=== PATIENT | female | born 1945 | race Caucasian/White ===

== ENCOUNTER → 2018-04-02 09:59 | Outpatient (CLI) | payer MEDICARE, BC, SELFPAY ==
[2018-04-02 13:37] LABS: Absolute Basophil Count 0.01 k/cumm (0.0-0.2); Absolute Eosinophil Count 0.07 k/cumm (0.0-0.7); Absolute Lymphocyte Count 2.88 k/cumm (1.2-3.4); Absolute Monocyte Count 0.37 k/cumm (0.11-0.7); Absolute Neutrophil Count 2.29 k/cumm (1.2-6.7); Basophils % 0.2; Eosinophils % 1.2; HCT 38.2 % (36.0-46.0); HGB 12.9 g/dL (12.0-15.5); Lymphocytes % 51.2; Mean Corp. HGB Concentration 33.8 g/dL (32.0-36.0); Mean Corpuscular Hemoglobin 31.5 pg (27.0-33.0); Mean Corpuscular Volume 93.2 fL (80-95); Monocytes % 6.6; Neutrophils % 40.8; Platelet Count 145 x1000/uL (130-400); RBC Distribution Width 14.9 % (11.7-14.6); White Blood Cell Count 5.62 k/cumm (4.4-10.8)
[2018-04-02 14:10] LABS: ALT 23 U/L (12-78); AST 14 U/L (15-37); Albumin 3.8 g/dL (3.4-5.0); Alkaline Phosphatase 58 U/L (46-116); Anion Gap 9.5 mmol/L (3-11); BUN 19 mg/dL (7-18); Bilirubin, Total 0.6 mg/dL (0.2-1.0); CO2 27.5 mmol/L (21.0-32.0); CREATININE 0.82 mg/dL (0.55-1.02); Calcium 8.9 mg/dL (8.5-10.1); Chloride 107 mmol/L (98-107); Glucose 93 mg/dL (70-100); Potassium 4.2 mmol/L (3.5-5.1); Sodium 144 mmol/L (136-145); TSH (W/Ref FT4) 0.75 uIU/mL (0.358-3.74); Total Protein 6.8 g/dL (6.4-8.2)
== END ==
PROVIDERS: Visit Provider Family Medicine
DX: I10 Essential (primary) hypertension (principal); K52.9 Noninfective gastroenteritis and colitis, unspecified; R19.7 Diarrhea, unspecified
CPT/HCPCS: 36415; 80053; 84443; 85025

== ENCOUNTER → 2018-04-03 15:54 | Outpatient (REF) | payer MEDICARE, BC, SELFPAY ==
[2018-04-04 13:45] LABS: Campylobacter PCR SEE COMMENTS; Salmonella PCR SEE COMMENTS; Shiga Toxin PCR SEE COMMENTS; Shigella/Enteroinvasive Ecoli SEE COMMENTS
== END ==
LOC: LBN 15:54
PROVIDERS: Visit Provider Family Medicine
DX: R19.7 Diarrhea, unspecified (principal); K52.9 Noninfective gastroenteritis and colitis, unspecified; Z12.11 Encounter for screening for malignant neoplasm of colon
CPT/HCPCS: 87329; 87505; 82270; 87177

== ENCOUNTER 2018-05-23 14:35 | Outpatient (CLI) | payer MEDICARE, BC, SELFPAY ==
[2018-05-27 10:22] LABS: Rheumatoid Factor 9 IU/mL (<12.5)
== END 2018-05-23 14:55 ==
DX: M25.50 Pain in unspecified joint (principal)
CPT/HCPCS: 36415; 80053; 86431

== ENCOUNTER 2019-03-11 12:54 | Outpatient (REF) | payer MEDICARE, BC, SELFPAY ==
--- NOTE | 2019-03-11 11:20 | PAPFT_PTH ---
PATIENT: Pushpa Miller LOC: [facility] U#:[id number] AGE/SX: 74/F ROOM: RE03/11/[address]: Desire Farmer : 1945 BED: DIS: 03/11/2019 SPEC #: [id number] RECD: 03/11/19 12:57 STATUS: JACINTA MCNEAL #: [id number] CHRISSIE: 03/11/19 11:[address]: Desire Farmer DEPT: [facility] Cytology RECD BY: Ava Foy ENTERED: 03/11/19 12:58 SP TYPE: PAPFT OTHR DR: Priscilla Jackman APRN Tissues: 1 - CX/ENDOCX FOR PAP SMEARS Procedures: PAP THIN PREP/UVM Screening HPV DNA PROBE Comments: [id number]
== END 2019-03-11 13:14 ==
LOC: LBN 12:54
PROVIDERS: Visit Provider Obstetrics & Gynecology Gynecology
DX: Z12.4 Encounter for screening for malignant neoplasm of cervix (principal); Z11.51 Encounter for screening for human papillomavirus (HPV)
CPT/HCPCS: 88142; 87624

== ENCOUNTER 2019-03-28 15:25 | Outpatient (CLI) | payer MEDICARE, BC, SELFPAY ==
--- NOTE | 2019-03-28 15:45 | DI.MAMMO_ITS ---
SYMPTOMS/DIAGNOSIS: SCREENING, Z12.31 MAMMOGRAM: Mammograms were interpreted according to the usual protocol including computer analysis with CAD system, tomosynthesis and C view imaging. The breasts are of moderate density with fairly symmetrical distribution of fibroglandular tissue. No dominant mass or clumped microcalcification is identified in either breast. Current examination is compared with the previous examinations including February 2018 and there has been no gross interval change in appearance in comparison with the previous studies. CONCLUSION: No specific evidence of malignancy at this time. Routine screening examinations are suggested at yearly intervals in this age group according to the ACS/ACR guidelines. Category 1, breast density category B. MQSA ASSESSMENT OF FINDINGS: Negative. Category 1. Patient will receive a letter notifying them of these results. BI-RADS category B. There are scattered areas of fibroglandular density.
== END 2019-03-28 15:45 ==
PROVIDERS: Visit Provider Obstetrics & Gynecology Gynecology
DX: Z12.31 Encounter for screening mammogram for malignant neoplasm of breast (principal)
CPT/HCPCS: 77063; 77067

== ENCOUNTER 2019-06-13 16:05 | Outpatient (REF) | payer MEDICARE, BC, SELFPAY ==
--- NOTE | 2019-06-13 15:00 | ENDO_PTH ---
PATIENT: Pushpa Miller LOC: [facility] U#:[id number] AGE/SX: 74/F ROOM: RE06/13/[address]: Desire Farmer : 1945 BED: DIS: 06/13/2019 SPEC #: [id number] RECD: 06/13/19 18:30 STATUS: JACINTA REQ #: [id number] CHRISSIE: 06/13/19 15:[address]: Desire Farmer DEPT: Surgical Specimen RECD BY: Ava Foy ENTERED: 06/13/19 18:30 SP TYPE: Endo OTHR DR: Priscilla Jackman APRN Tissues: 1 - ENDOCERVICAL BX/CURRETTE Procedures: GROSS AND MICRO LEVEL 4 Comments: [id number]
== END 2019-06-13 16:25 ==
LOC: LBN 16:05
PROVIDERS: Visit Provider Obstetrics & Gynecology Gynecology
DX: N87.9 Dysplasia of cervix uteri, unspecified (principal); Z87.42 Personal history of other diseases of the female genital tract
CPT/HCPCS: 88305

== ENCOUNTER 2019-06-21 01:28 | Outpatient (CLI) | payer MEDICARE, BC, SELFPAY ==
[2019-06-21 12:29] LABS: Anion Gap 8.3 mmol/L (3-11); BUN 27 mg/dL (7-18); CO2 28.7 mmol/L (21.0-32.0); CREATININE 0.82 mg/dL (0.55-1.02); Calcium 9.2 mg/dL (8.5-10.1); Chloride 104 mmol/L (98-107); FREE T4 1.17 ng/dL (0.76-1.46); Glucose 99 mg/dL (70-100); Potassium 4.2 mmol/L (3.5-5.1); Sodium 141 mmol/L (136-145); TSH (W/Ref FT4) 0.95 uIU/mL (0.36-3.74)
== END 2019-06-21 01:48 ==
DX: I10 Essential (primary) hypertension; L65.9 Nonscarring hair loss, unspecified; R79.89 Other specified abnormal findings of blood chemistry
CPT/HCPCS: 36415; 80048; 84439; 84443

== ENCOUNTER 2019-09-25 02:35 | Outpatient (CLI) | payer MEDICARE, BC, SELFPAY ==
[2019-09-25 14:00] LABS: Kit/Specimen SENT
== END 2019-09-25 02:55 ==
PROVIDERS: Visit Provider Physician Assistant Medical
DX: Z02.89 Encounter for other administrative examinations (principal); R69 Illness, unspecified
CPT/HCPCS: 36415

== ENCOUNTER 2020-12-02 01:36 | Outpatient (CLI) | payer MEDICARE, BC, SELFPAY ==
--- NOTE | 2020-12-02 11:25 | DI.MAMMO_ITS ---
EXAM: MG MAMMO SCREENING CLINICAL HISTORY: screening,Z12.39. TECHNIQUE: Bilateral full field digital CC and MLO mammographic images were obtained with 3D tomosyn thesis and utilizing computer aided detection (CAD). COMPARISON: Prior mammograms dating back to 2010, the most recent being March 2019. FINDINGS: There are no new spiculated masses nor malignant appearing microcalcification groups. There is no significant architectural distortion nor skin thickening-retraction. IMPRESSION: No radiographic evidence of malignancy. BI-RADS Category 1 - Negative Breast Density - Category B - Scattered areas of fibroglandular density Breast density Category C or D implies that the patient has dense breast tissue. Dense breast tissue can make it harder to find cancer on a mammogram. Dense breast tissue is also associated with an incr eased risk of breast cancer. This information about the result of the mammogram report was provided to the patient to raise their awareness. Use this report when you speak with the patient about their risks for breast cancer, which includes their family history. At that time, you may recommend additional screening tests (Ultrasoun d or MRI) as these tests may add significant information. A negative radiographic report should not delay biopsy if a dominant or clinically suspicious mass is present. Up to ten percent of cancers are not identified on mammography. A negative report may reinforce clinical impression. Adenosis and dense breasts may obscure an underlying neoplasm. False positive reports average 6 to 10%. Patient will receive a letter notifying them of these results.
== END 2020-12-02 01:56 ==
PROVIDERS: Visit Provider Obstetrics & Gynecology Gynecology
DX: Z12.31 Encounter for screening mammogram for malignant neoplasm of breast (principal)
CPT/HCPCS: 77063; 77067

== ENCOUNTER 2020-12-06 15:28 | Outpatient (REF) | payer MEDICARE, BC, SELFPAY ==
--- NOTE | 2020-12-06 15:10 | PAPFT_PTH ---
PATIENT: Pushpa Miller LOC: [facility] U#:[id number] AGE/SX: 75/F ROOM: RE12/06/[address]: Desire Farmer : 1945 BED: DIS: 12/06/2020 SPEC #: [id number] RECD: 12/06/20 17:57 STATUS: JACINTA REMarco #: [id number] CHRISSIE: 12/06/20 15:[address]: Desire Farmer DEPT: [facility] Cytology RECD BY: Ava Foy ENTERED: 12/06/20 17:58 SP TYPE: PAPFT OTHR DR: Priscilla Jackman APRN Tissues: 1 - CX/ENDOCX FOR PAP SMEARS Procedures: PAP THIN PREP/UVM Screening HPV DNA PROBE Comments: [id number] (HPV 16 & 18/45)
== END 2020-12-06 15:29 | disposition home or self-care (01) ==
LOC: LBN 15:28
PROVIDERS: Visit Provider Obstetrics & Gynecology Gynecology
DX: Z12.4 Encounter for screening for malignant neoplasm of cervix (principal); Z87.42 Personal history of other diseases of the female genital tract; Z11.51 Encounter for screening for human papillomavirus (HPV); R87.810 Cervical high risk human papillomavirus (HPV) DNA test positive
CPT/HCPCS: 88142; 87624

== ENCOUNTER 2020-12-30 02:15 | Outpatient (CLI) | payer MEDICARE, BC, SELFPAY ==
[2020-12-30 12:14] LABS: ALT 30 U/L (14-59); AST 18 U/L (15-37); Albumin 3.9 g/dL (3.4-5.0); Alkaline Phosphatase 69 U/L (46-116); Anion Gap 9.1 mmol/L (3-11); BUN 22 mg/dL (7-18); Bilirubin, Total 0.5 mg/dL (0.2-1.0); C-Reactive Protein < 0.05 mg/dL (0.0-0.3); CO2 27.9 mmol/L (21.0-32.0); CREATININE 0.8 mg/dL (0.55-1.02); Calcium 8.7 mg/dL (8.5-10.1); Chloride 105 mmol/L (98-107); Glucose 100 mg/dL (74-106); Potassium 4.2 mmol/L (3.5-5.1); Sodium 142 mmol/L (136-145); TSH (W/Ref FT4) 0.83 uIU/mL (0.36-3.74); Total Protein 6.9 g/dL (6.4-8.2)
[2020-12-30 12:28] LABS: Calculated LDL 99 mg/dL (<100); Cholesterol 181 mg/dL (<200); HDL Cholesterol 75 mg/dL (40-60); Triglyceride 39 mg/dL (<150)
[2020-12-30 16:29] LABS: Rheumatoid Factor <8.6 IU/mL (<12.0)
[2020-12-31 13:31] LABS: ANA Interpretation Negative (Negative)
== END 2020-12-30 02:16 | disposition home or self-care (01) ==
DX: M25.541 Pain in joints of right hand (principal); M25.542 Pain in joints of left hand; M25.572 Pain in left ankle and joints of left foot; M25.562 Pain in left knee; I10 Essential (primary) hypertension; G47.00 Insomnia, unspecified; Z00.00 Encounter for general adult medical examination without abnormal findings
CPT/HCPCS: 36415; 80053; 80061; 86816; 84443; 86038; 86140; 86431

== ENCOUNTER 2021-01-14 02:21 | Outpatient (CLI) | payer MEDICARE, BC, SELFPAY ==
[2021-01-18 11:18] LABS: IgA 348 mg/dL (85-499); Interpretation (See Note); Tissue Transglutaminase IgA <1.2 U/mL (<4.0)
[2021-01-18 16:27] LABS: Gliadin (Deamidated) Ab, IgG <10.0 U
[2021-01-18 20:14] LABS: C2 Complement, Functional 45 U/mL (25 - 47)
[2021-01-21 18:10] LABS: Transforming Growth Factor b 7481 pg/mL (3465-13889)
== END 2021-01-14 02:22 | disposition home or self-care (01) ==
PROVIDERS: Visit Provider Internal Medicine
DX: E61.7 Deficiency of multiple nutrient elements (principal); R53.83 Other fatigue; G47.33 Obstructive sleep apnea (adult) (pediatric); G60.9 Hereditary and idiopathic neuropathy, unspecified; K52.832 Lymphocytic colitis; B37.9 Candidiasis, unspecified; Z83.79 Family history of other diseases of the digestive system; Z77.120 Contact with and (suspected) exposure to mold (toxic); L66.1 Lichen planopilaris
CPT/HCPCS: 36415; 82784; 83516; 83520; 86161

== ENCOUNTER 2021-01-31 02:51 | Outpatient (CLI) | payer MEDICARE, BC, SELFPAY | END 2021-01-31 02:52 | disposition home or self-care (01) | PROVIDERS: Visit Provider Internal Medicine | DX: R53.83 Other fatigue (principal); E61.7 Deficiency of multiple nutrient elements; Z77.120 Contact with and (suspected) exposure to mold (toxic); K52.832 Lymphocytic colitis; G47.33 Obstructive sleep apnea (adult) (pediatric); I10 Essential (primary) hypertension; Z01.84 Encounter for antibody response examination | CPT/HCPCS: 80061; 84403; 86617 ==

== ENCOUNTER 2021-02-15 03:24 | Outpatient (CLI) | payer MEDICARE, BC, SELFPAY | END 2021-02-15 03:25 | disposition home or self-care (01) | LOC: LBO 03:24 | PROVIDERS: Visit Provider Internal Medicine | DX: E61.7 Deficiency of multiple nutrient elements (principal); B37.9 Candidiasis, unspecified; R53.83 Other fatigue; G47.33 Obstructive sleep apnea (adult) (pediatric); G60.9 Hereditary and idiopathic neuropathy, unspecified; K52.832 Lymphocytic colitis; Z83.79 Family history of other diseases of the digestive system; Z77.120 Contact with and (suspected) exposure to mold (toxic) | CPT/HCPCS: 83520 ==

== ENCOUNTER 2021-12-20 01:41 | Outpatient (CLI) | payer MEDICARE, BC, SELFPAY ==
[2021-12-20 12:34] LABS: ALT 27 U/L (14-59); AST 20 U/L (15-37); Albumin 3.9 g/dL (3.4-5.0); Alkaline Phosphatase 65 U/L (46-116); Anion Gap 9.5 mmol/L (3-11); BUN 15 mg/dL (7-18); Bilirubin, Total 0.6 mg/dL (0.2-1.0); CO2 27.5 mmol/L (21.0-32.0); CREATININE 0.9 mg/dL (0.55-1.02); Calcium 9.1 mg/dL (8.5-10.1); Chloride 99 mmol/L (98-107); Glucose 101 mg/dL (74-106); Potassium 3.8 mmol/L (3.5-5.1); Sodium 136 mmol/L (136-145); Total Protein 6.9 g/dL (6.4-8.2)
== END 2021-12-20 01:42 | disposition home or self-care (01) ==
LOC: LOS 01:42
DX: I10 Essential (primary) hypertension (principal)
CPT/HCPCS: 36415; 80053

== ENCOUNTER 2022-02-21 15:01 | Outpatient (REF) | payer MEDICARE, BC, SELFPAY ==
--- NOTE | 2022-02-21 15:45 | PAPFT_PTH ---
PATIENT: Pushpa Miller LOC: [facility]#:[id number] AGE/SX: 77/F ROOM: RE02/21/[address]: Desire Farmer : 1945 BED: DIS: 02/21/2022 SPEC #: [id number] RECD: 02/21/22 15:57 STATUS: JACINTA REMarco #: [id number] CHRISSIE: 02/21/22 15:[address]: Desire Farmer DEPT: [facility] Cytology RECD BY: Obdulia Hill ENTERED: 02/21/22 15:58 SP TYPE: PAPFT OTHR DR: Priscilla Jackman APRN Tissues: 1 - CX/ENDOCX FOR PAP SMEARS Procedures: PAP THIN PREP/UVM Screening HPV DNA PROBE Comments: [id number]
== END 2022-02-21 15:02 | disposition home or self-care (01) ==
LOC: LBN 15:01
PROVIDERS: Visit Provider Obstetrics & Gynecology Gynecology
DX: Z12.4 Encounter for screening for malignant neoplasm of cervix (principal); Z11.51 Encounter for screening for human papillomavirus (HPV); R87.810 Cervical high risk human papillomavirus (HPV) DNA test positive; Z01.411 Encounter for gynecological examination (general) (routine) with abnormal findings; Z92.89 Personal history of other medical treatment
CPT/HCPCS: 88142; 87624

== ENCOUNTER 2022-02-28 15:01 | Outpatient (REF) | payer MEDICARE, BC, SELFPAY ==
[2022-03-02 10:54] LABS: COVID-19 RT-PCR UVMMC Result Negative (Negative)
== END 2022-02-28 15:02 | disposition home or self-care (01) ==
LOC: LBN 15:01
PROVIDERS: Visit Provider Family Medicine
DX: Z20.822 Contact with and (suspected) exposure to COVID-19 (principal); J06.9 Acute upper respiratory infection, unspecified
CPT/HCPCS: U0003

== ENCOUNTER → 2022-04-06 01:10 | Outpatient (CLI) | payer MEDICARE, BC, SELFPAY ==
--- NOTE | 2022-04-06 15:45 | DI.MAMMO_ITS ---
Exam(s) MAMMO SCREENING EXAM: MAMMO SCREENING CLINICAL HISTORY: screening TECHNIQUE: Mammograms were interpreted according to the usual protocol including computer analysis w [employer] CAD system, tomosynthesis and C-view imaging. COMPARISON: 2012 through 2020 FINDINGS: The breasts are composed of scattered fibroglandular densities, Breast Density category B. No suspicious masses or suspicious microcalcifications are seen. No skin thickening or abnormal axillary lymph nodes are seen. There has been no significant change from prior exams. IMPRESSION: BI-RADS Category 1, Negative mammogram Yearly screening mammography is recommended. Breast Density - Category B, scattered fibroglandular densities. A negative radiographic report should not delay biopsy if a dominant or clinically suspicious mass is present. Up to ten percent of cancers are not identified on mammography. A negative report may reinforce clinical impression. Adenosis and dense breasts may obscure an underlying neoplasm. False positive reports average 6 to 10%. Patient will receive a letter notifying them of these results.
== END ==
PROVIDERS: Visit Provider Obstetrics & Gynecology Gynecology
DX: Z12.31 Encounter for screening mammogram for malignant neoplasm of breast (principal)
CPT/HCPCS: 77063; 77067

== ENCOUNTER 2022-12-28 02:37 | Outpatient (CLI) | payer MEDICARE, BC, SELFPAY ==
[2022-12-28 09:48] LABS: Hemoglobin A1C 5.5 % (<5.7)
[2022-12-28 10:00] LABS: Anion Gap 8.9 mmol/L (3-11); BUN 24 mg/dL (7-18); CO2 31.1 mmol/L (21.0-32.0); Calcium 9.1 mg/dL (8.5-10.1); Chloride 103 mmol/L (98-107); Estimated GFR 58.75 (mL/min/1.73m2); Glucose 110 mg/dL (74-106); Potassium 3.9 mmol/L (3.5-5.1); Sodium 143 mmol/L (136-145)
== END 2022-12-28 02:38 | disposition home or self-care (01) ==
LOC: LBO 02:37
PROVIDERS: PCP Nurse Practitioner Family; Visit Provider Nurse Practitioner Family
DX: I10 Essential (primary) hypertension (principal); R73.9 Hyperglycemia, unspecified
CPT/HCPCS: 36415; 80048; 83036

== ENCOUNTER 2023-02-05 13:38 | Outpatient (REF) | payer MEDICARE, BC, SELFPAY ==
--- NOTE | 2023-02-05 13:30 | PAPFT_PTH ---
PATIENT: Pushpa Miller LOC: [facility] U#:[id number] AGE/SX: 77/F ROOM: RE02/05/[address]: Desire Farmer : 1945 BED: DIS: 02/05/2023 SPEC #: [id number] RECD: 02/05/23 17:53 STATUS: JACINTA REMarco #: [id number] CHRISSIE: 02/05/23 13:[address]: Desire Farmer DEPT: [facility] Cytology RECD BY: Ava Foy ENTERED: 02/05/23 17:53 SP TYPE: PAPFT OTHR DR: John Smalls DNP Tissues: 1 - CX/ENDOCX FOR PAP SMEARS Procedures: PAP THIN PREP/UVM Screening HPV DNA PROBE Comments: [id number]
== END 2023-02-05 13:39 | disposition home or self-care (01) ==
LOC: LBN 13:38
PROVIDERS: PCP Nurse Practitioner Family; Visit Provider Obstetrics & Gynecology Gynecology
DX: R87.610 Atypical squamous cells of undetermined significance on cytologic smear of cervix (ASC-US) (principal)
CPT/HCPCS: 88142; 87624

== ENCOUNTER → 2023-04-09 00:53 | Outpatient (CLI) | payer MEDICARE, BC, SELFPAY ==
--- NOTE | 2023-04-09 07:45 | DI.MAMMO_ITS ---
Exam(s) MAMMO SCREENING EXAM: MAMMO SCREENING CLINICAL HISTORY: screening,z12.39 TECHNIQUE: Bilateral full field digital CC and MLO mammographic images were obtained with 3D tomosyn thesis and utilizing computer aided detection (CAD). COMPARISON: Available for comparison. FINDINGS: Masses/Architectural Distortion: None seen. Microcalcifications: No suspicious pleomorphic-type are seen. Skin Thickening/Nipple Retraction: None. IMPRESSION: 1. No significant interval change with no specific features of malignancy noted. 2. Unless there is more urgent need, screening mammography is recommended, as per [employer] guidelines. BI-RADS Category 1 - Negative Breast Density - Category B - Scattered areas of fibroglandular density Breast density category C or D implies that the patient has dense breast tissue. Dense breast tissue is very common and is not abnormal but dense breast tissue can make it harder to find cancer on a ma mmogram. Also, dense breast tissue may increase their breast cancer risk. This information about the result of the mammogram report was provided to the patient to raise their awareness. Use this report when you speak with the patient about their risks for breast cancer, which includes their family hist ory. At that time, you may recommend for more screening tests (Ultrasound or MRI) as they might be us eful based on their risk. A negative radiographic report should not delay biopsy if a dominant or clinically suspicious mass is present. Up to ten percent of cancers are not identified on mammography. A negative report may reinforce clinical impression. Adenosis and dense breasts may obscure an underlying neoplasm. False positive reports average 6 to 10%. Patient will receive a letter notifying them of these results.
== END ==
PROVIDERS: PCP Nurse Practitioner Family; Visit Provider Obstetrics & Gynecology Gynecology
DX: Z12.31 Encounter for screening mammogram for malignant neoplasm of breast (principal)
CPT/HCPCS: 77063; 77067

== ENCOUNTER 2024-01-08 05:09 | Outpatient (CLI) | payer MEDICARE, BC, SELFPAY ==
[2024-01-08 09:38] LABS: Anion Gap 6.6 mmol/L (3-11); BUN 23 mg/dL (7-18); CO2 28.4 mmol/L (21.0-32.0); Calcium 9.1 mg/dL (8.5-10.1); Chloride 103 mmol/L (98-107); Estimated GFR 58.39 (mL/min/1.73m2); Glucose 102 mg/dL (74-106); Potassium 4.2 mmol/L (3.5-5.1); Sodium 138 mmol/L (136-145)
== END 2024-01-08 05:10 | disposition home or self-care (01) ==
LOC: LBO 05:10
PROVIDERS: PCP Nurse Practitioner Family; Visit Provider Nurse Practitioner Family
DX: I10 Essential (primary) hypertension (principal)
CPT/HCPCS: 36415; 80048

== ENCOUNTER → 2024-01-28 05:35 | Outpatient (CLI) | payer MEDICARE, BC, SELFPAY ==
--- NOTE | 2024-01-28 | DI.DEXA_ITS ---
Exam(s) XR DEXA BONE DENSITY W/WO JIMMY EXAM: XR DEXA BONE DENSITY W/WO JIMMY CLINICAL HISTORY: screening for osteoporosis, POSTMENOPAUSAL STATUS, Z78.0 TECHNIQUE: COMPARISON: DX DEXA BONE DENSITY WITH JIMMY from 09/03/2012 FINDINGS: Lateral Spine Image: Unremarkable. No compression deformities identified. Left hip: Total T-Score: -0.3. This compares to 0.1 on the prior examination. Total Z-Score: 1.6 T- and Z-scores: Within normal limits. Lumbar Spine: Total T-Score: 2.1. This compares to 1.1 on the prior examination. Total Z-Score: 4.6 T- and Z-scores: Within normal limits. IMPRESSION: No evidence of osteoporosis.
== END ==
PROVIDERS: PCP Nurse Practitioner Family; Visit Provider Nurse Practitioner Family
DX: Z13.820 Encounter for screening for osteoporosis (principal); Z78.0 Asymptomatic menopausal state
CPT/HCPCS: 77080

== ENCOUNTER 2024-02-11 11:35 | Outpatient (REF) | payer MEDICARE, BC, SELFPAY ==
--- NOTE | 2024-02-11 11:30 | PAPFT_PTH ---
PATIENT: Pushpa Miller LOC: [facility] U#:[id number] AGE/SX: 78/F ROOM: RE02/11/[address]: Desire Farmer : 1945 BED: DIS: 02/11/2024 SPEC #: [id number] RECD: 02/11/24 13:00 STATUS: JACINTA REMarco #: [id number] CHRISSIE: 02/11/24 11:[address]: Desire Farmer DEPT: [facility] Cytology RECD BY: Ava Foy ENTERED: 02/11/24 13:00 SP TYPE: PAPFT OTHR DR: John Smalls DNP Tissues: 1 - CX/ENDOCX FOR PAP SMEARS Procedures: PAP THIN PREP/UVM Screening HPV DNA PROBE Comments: [id number] (HPV 16 & 18/45)
== END 2024-02-11 11:36 | disposition home or self-care (01) ==
LOC: LBN 11:35
PROVIDERS: PCP Nurse Practitioner Family; Visit Provider Obstetrics & Gynecology Gynecology
DX: Z12.4 Encounter for screening for malignant neoplasm of cervix (principal)
CPT/HCPCS: 88142; 87624

== ENCOUNTER → 2024-02-22 19:50 | Outpatient (CLI) | payer MEDICARE, BC, SELFPAY ==
--- NOTE | 2024-02-22 17:52 | DI.RAD_ITS ---
Exam(s) XR TIB/FIB LT EXAM: XR TIB/FIB LT CLINICAL HISTORY: evaluate pathology, pain in left lower leg M79.662. TECHNIQUE: 2D digital imaging was performed of the left tibia and fibula. Two images were obtained. AP and lateral views were obtained. COMPARISON: No exams were available for comparison FINDINGS: BONES: No acute fracture is present. No bony destructive lesion is seen. Marked degenerative changes are seen in the knee involving all 3 joint compartments. There is an enthesophyte at the posterior c alcaneus. SOFT TISSUE: There is mild soft tissue swelling of the ankle. IMPRESSION: No acute fracture or dislocation. DATA REPOSITORY: RADIATION DOSE DELIVERED:
--- NOTE | 2024-02-22 18:05 | DI.VRAD_ITS ---
PROCEDURE INFORMATION: Exam: XR Left Tibia and Fibula Exam date and time: 02/22/2024 5:50 PM Age: 79 years old Clinical indication: Pain; Lower leg; Left TECHNIQUE: Imaging protocol: Radiologic exam of the left tibia and fibula. Views: 2 views. COMPARISON: No relevant prior studies available. FINDINGS: Bones/joints: Degenerative changes of the medial and lateral femorotibial joint and the patellofemoral joint. No evidence for acute bony injury. No evidence for acute bony injury. Soft tissues: Soft tissue swelling of the ankle. IMPRESSION: No evidence for acute bony injury. If clinical symptoms persist recommend followup film in 7-10 days. Dictated and Authenticated by: Jennifer Torres MD. Ordering:ALLYSON Martinez MD
== END ==
PROVIDERS: PCP Nurse Practitioner Family; Visit Provider Nurse Practitioner Family
DX: M79.662 Pain in left lower leg (principal)
CPT/HCPCS: 73590

== ENCOUNTER 2024-04-18 00:03 | Outpatient (CLI) | payer MEDICARE, BC, SELFPAY ==
--- NOTE | 2024-04-18 11:52 | DI.MAMMO_ITS ---
Exam(s) MAMMO SCREENING EXAM: MAMMO SCREENING CLINICAL HISTORY: screening. TECHNIQUE: Bilateral full field digital CC and MLO mammographic images were obtained with 3D tomosyn thesis and utilizing computer aided detection (CAD). COMPARISON: Prior mammograms were reviewed. FINDINGS: There has been no significant change in the appearance and distribution of the fibroglandular tissue. Small density located superficially in the medial aspect of right breast is unchanged from mammograms and is probably a skin mole. There are no new spiculated masses nor malignant appearing microcalcification groups in either breast . There is no significant architectural distortion nor skin thickening-retraction. IMPRESSION: No radiographic evidence of malignancy. BI-RADS Category 2 - Benign Findings Breast Density - Category B - Scattered areas of fibroglandular density Breast density Category C or D implies that the patient has dense breast tissue. Dense breast tissue can make it harder to find cancer on a mammogram. Dense breast tissue is also associated with an incr eased risk of breast cancer. This information about the result of the mammogram report was provided to the patient to raise their awareness. Use this report when you speak with the patient about their risks for breast cancer, which includes their family history. At that time, you may recommend additional screening tests (Ultrasoun d or MRI) as these tests may add significant information. A negative radiographic report should not delay biopsy if a dominant or clinically suspicious mass is present. Up to ten percent of cancers are not identified on mammography. A negative report may reinforce clinical impression. Adenosis and dense breasts may obscure an underlying neoplasm. False positive reports average 6 to 10%. Patient will receive a letter notifying them of these results.
== END 2024-04-18 00:23 ==
LOC: DI 00:03
PROVIDERS: PCP Nurse Practitioner Family; Visit Provider Obstetrics & Gynecology Gynecology
DX: Z12.31 Encounter for screening mammogram for malignant neoplasm of breast (principal)
CPT/HCPCS: 77063; 77067

== ENCOUNTER 2024-05-28 16:10 | Outpatient (REF) | payer MEDICARE, BC, SELFPAY ==
--- NOTE | 2024-05-28 15:00 | CER_PTH ---
PATIENT: Pushpa Miller LOC: [facility] U#:[id number] AGE/SX: 79/F ROOM: RE05/28/[address]: Desire Farmer : 1945 BED: DIS: 05/28/2024 SPEC #: [id number] RECD: 05/28/24 17:38 STATUS: JACINTA REQ #: [id number] CHRISSIE: 05/28/24 15:[address]: Desire Farmer DEPT: Surgical Specimen RECD BY: Ava Foy ENTERED: 05/28/24 17:39 SP TYPE: CER LIBERTAD DR: John Smalls DNP Tissues: 1 - CERVICAL BIOPSY Procedures: GROSS AND MICRO LEVEL 4 Comments: [id number]
== END 2024-05-28 16:11 | disposition home or self-care (01) ==
LOC: LBN 16:10
PROVIDERS: PCP Nurse Practitioner Family; Visit Provider Obstetrics & Gynecology Gynecology
DX: R87.810 Cervical high risk human papillomavirus (HPV) DNA test positive (principal); R87.610 Atypical squamous cells of undetermined significance on cytologic smear of cervix (ASC-US)
CPT/HCPCS: 88305

== ENCOUNTER 2024-12-17 00:32 | Outpatient (CLI) | payer MEDICARE, BC, SELFPAY ==
--- NOTE | 2024-12-17 | DI.RAD_ITS ---
Exam(s) XR ANKLE RT COMPLETE XR FOOT RT COMPLETE EXAM: XR FOOT RT COMPLETE and XR ankle RT complete CLINICAL HISTORY: M20.41 Other hammer toe(s)(acquired), RT foot, Weightbearing. TECHNIQUE: 2D digital imaging was performed of the right ankle and foot. Six images were obtained. AP, oblique and lateral views were obtained. COMPARISON: There are no priors for comparison. FINDINGS: BONES: No acute fracture is present. No bony destructive lesion is seen. There is a small enthesophyt e at the posterior calcaneus. There is a small plantar calcaneal spur. There is a well corticated a ccessory ossicle posterior to the talus. There is a bone island in the distal fibula. JOINTS: No dislocation present. There is a hallux valgus deformity present. Hammertoe deformities of the 2nd through 5th toes are noted. There are degenerative changes of the foot particularly in the interphalangeal joints and the 1st tarsometatarsal joint. The ankle joint is well maintained. SOFT TISSUE: There is a well corticated osseous density at the tip of the medial malleolus which appe ars chronic. IMPRESSION: 1. Hallux valgus deformity and hammertoe deformities of the 2nd through 5th toes. 2. Mild degenerative changes of the foot. 3. Calcaneal spurs. DATA REPOSITORY: RADIATION DOSE DELIVERED:
--- NOTE | 2024-12-17 | DI.RAD_ITS ---
Exam(s) XR FOOT LT COMPLETE XR ANKLE LT COMPLETE EXAM: XR FOOT LT COMPLETE and XR ankle LT complete CLINICAL HISTORY: M79.675,M79.89 Pain LT toe(s), other specified soft tissue disorders,. TECHNIQUE: 2D digital imaging was performed of the left ankle and foot. Six images were obtained. AP, oblique and lateral views were obtained. COMPARISON: There are no priors for comparison. FINDINGS: BONES: No acute fracture is present. No bony destructive lesion is seen. There has been an amputation of the 3rd and 4th toes. There is a plantar calcaneal spur. There is an enthesophyte at the enterprise architect ior calcaneus. There is a prominent accessory ossicle posterior to the talus. The talar dome is unr emarkable. JOINTS: No dislocation present. There is a hallux valgus deformity. Degenerative changes are seen in the foot particularly at the 1st MTP joint. There is a hammertoe deformity of the 2nd and 5th toes. SOFT TISSUE: There well corticated osseous density seen at the tips of both the medial lateral malleo li which are old. Soft tissue swelling around the ankle is seen laterally. IMPRESSION: 1. 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 2. Degenerative changes of the foot particularly at the 1st MTP joint. 3. Hallux valgus deformity. Hammertoe deformities of the 2nd and 5th toes. 4. Calcaneal spurs. DATA REPOSITORY: RADIATION DOSE DELIVERED:
== END 2024-12-17 00:52 ==
LOC: DI 00:32
PROVIDERS: PCP Nurse Practitioner Family; Visit Provider Podiatrist Foot & Ankle Surgery
DX: M20.12 Hallux valgus (acquired), left foot (principal); M77.32 Calcaneal spur, left foot; M77.31 Calcaneal spur, right foot; M20.11 Hallux valgus (acquired), right foot
CPT/HCPCS: 73610; 73630

== ENCOUNTER 2025-01-23 10:47 | Outpatient (CLI) | payer MEDICARE, BC, SELFPAY ==
[2025-01-23 11:28] LABS: Hemoglobin A1C 5.5 % (<5.7)
[2025-01-23 12:18] LABS: ALT 33 U/L (14-59); AST 20 U/L (15-37); Albumin 3.8 g/dL (3.4-5.0); Alkaline Phosphatase 70 U/L (46-116); Anion Gap 7.7 mmol/L (3-11); BUN 24 mg/dL (7-18); Bilirubin, Total 0.6 mg/dL (0.2-1.0); CO2 30.3 mmol/L (21.0-32.0); CREATININE 0.9 mg/dL (0.55-1.02); Calcium 9.1 mg/dL (8.5-10.1); Chloride 95 mmol/L (98-107); Estimated GFR 65.84 (mL/min/1.73m2); Glucose 100 mg/dL (74-106); Potassium 3.9 mmol/L (3.5-5.1); Sodium 133 mmol/L (136-145); Total Protein 6.8 g/dL (6.4-8.2)
[2025-01-23 20:40] LABS: HBs Antibody, Quant <3.1 mIU/mL (See Note); Hep B Surface Ab Negative (See Note); Hepatitis B Core Antibody Negative (Negative); Hepatitis B Surface Antigen Negative (Negative)
[2025-01-23 20:41] LABS: Hepatitis C Ab w Rflx HCV PCR Negative (Negative)
[2025-01-23 20:43] LABS: HIV-1/2 Ag & Ab Screen Negative (Negative)
[2025-01-26 11:25] LABS: Measles IgG Antibody Positive (See Note)
[2025-01-27 14:21] LABS: Myeloperoxidase Ab IgG <0.2 U (>=0.4)
[2025-01-28 11:35] LABS: Insulin, Free 11 mcIU/mL (3 - 25); Insulin, Total 12 mcIU/mL (3 - 25)
[2025-01-28 17:55] LABS: Apolipoprotein B, Serum 72 mg/dL (48-124); Beta VLDL Cholesterol Not Detected mg/dL (<15); Beta VLDL Triglycerides Not Detected mg/dL (<15); Cholesterol, Total, CDC 174 mg/dL; Chylomicron Cholesterol Not Detected; Chylomicron Triglycerides Not Detected; HDL Cholesterol, CDC 58 mg/dL (>=50); Interpretation Normal; LDL Cholesterol 98 mg/dL; LDL Triglycerides 29 mg/dL (<=50); Lp(a) Cholesterol <5 mg/dL (<5); LpX Not detected; Triglycerides, CDC 96 mg/dL; VLDL Cholesterol 18 mg/dL (<30); VLDL Triglycerides 48 mg/dL (<120)
== END 2025-01-23 10:48 | disposition home or self-care (01) ==
LOC: LBO 10:48
PROVIDERS: PCP Nurse Practitioner Family; Visit Provider Nurse Practitioner Family
DX: Z82.41 Family history of sudden cardiac death (principal); Z13.220 Encounter for screening for lipoid disorders; Z11.59 Encounter for screening for other viral diseases; E66.9 Obesity, unspecified; R73.9 Hyperglycemia, unspecified; Z11.4 Encounter for screening for human immunodeficiency virus [HIV]
CPT/HCPCS: 36415; 80053; 80061; 83525; 83527; 86704; 86706; 86803; 87340; 87389; 82172; 82664; 83036; 83516; 86765

== ENCOUNTER 2025-03-05 17:53 | Outpatient (REF) | payer MEDICARE, BC, SELFPAY | END 2025-03-05 17:54 | disposition home or self-care (01) | LOC: LBN 17:53 | PROVIDERS: PCP Nurse Practitioner Family; Visit Provider Obstetrics & Gynecology | DX: Z12.4 Encounter for screening for malignant neoplasm of cervix (principal) | CPT/HCPCS: 88142; 87624 ==

== ENCOUNTER 2025-04-16 13:36 | Outpatient (REF) | payer MEDICARE, BC, SELFPAY | END 2025-04-16 13:37 | disposition home or self-care (01) | LOC: LBN 13:36 | PROVIDERS: PCP Nurse Practitioner Family; Visit Provider Obstetrics & Gynecology | DX: R87.612 Low grade squamous intraepithelial lesion on cytologic smear of cervix (LGSIL) (principal) | CPT/HCPCS: 88305 ==

== ENCOUNTER 2025-05-01 03:45 | Outpatient (CLI) | payer MEDICARE, BC, SELFPAY ==
--- NOTE | 2025-05-01 06:04 | DI.MAMMO_ITS ---
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 TECHNIQUE: Bilateral full field digital CC and MLO mammographic images were obtained with 3D tomosynthesis and utilizing computer aided detection (CAD). COMPARISON: Prior mammograms were reviewed. FINDINGS: No new right breast findings. Small benign-appearing nodule laterally in the left breast is unchanged from prior mammograms and most probably a benign intramammary lymph node. There are no new spiculated masses nor malignant appearing microcalcification groups. There is no significant architectural distortion nor skin thickening-retraction. IMPRESSION: Stable benign-appearing findings. No radiographic evidence of malignancy. BI-RADS Category 2 - Benign Findings Breast Density - Category C - The breast are heterogeneously dense, which may obscure small masses. Breast density Category C or D implies that the patient has dense breast tissue. Dense breast tissue can make it harder to find cancer on a mammogram. Dense breast tissue is also associated with an increased risk of breast cancer. This information about the result of the mammogram report was provided to the patient to raise their awareness. Use this report when you speak with the patient about their risks for breast cancer, which includes their family history. At that time, you may recommend additional screening tests (Ultrasound or MRI) as these tests may add significant information. A negative radiographic report should not delay biopsy if a dominant or clinically suspicious mass is present. Up to ten percent of cancers are not identified on mammography. A negative report may reinforce clinical impression. Adenosis and dense breasts may obscure an underlying neoplasm. False positive reports average 6 to 10%. Patient will receive a letter notifying them of these results.
== END 2025-05-01 04:05 ==
LOC: DI 03:45
PROVIDERS: PCP Nurse Practitioner Family; Visit Provider Obstetrics & Gynecology
DX: Z01.419 Encounter for gynecological examination (general) (routine) without abnormal findings (principal); Z12.31 Encounter for screening mammogram for malignant neoplasm of breast; D24.2 Benign neoplasm of left breast
CPT/HCPCS: 77063; 77067